=== PATIENT | male | born 1955 | race Caucasian/White ===

== ENCOUNTER 2018-03-05 06:25 | Day surgery (SDC) | payer BC ==
[2018-03-04 12:29] LABS: ALT/SGPT 20 U/L (12-78); AST/SGOT 19 U/L (15-37); Albumin 3.6 g/dL (3.4-5.0); Alkaline Phosphatase 102 U/L (45-117); Amylase Level 44 U/L (25-115); Bilirubin Direct < 0.1 mg/dL (0-0.2); Bilirubin Total 0.3 mg/dL (0.2-1.0); Protein, Total 6.9 g/dL (6.4-8.2)
[2018-03-05] MEDS ORDERED: Ringers Lactate 1,000 ML IV ONE (07:11)
[2018-03-05] MEDS ORDERED: CEFOXITIN/SWI 1gm 1 GM/10 ML SYR ONE (07:22)
[2018-03-05] MEDS ORDERED: BUPIVACAINE 0.5% PF 10 ML VIAL ONE (07:32)
[2018-03-05] MEDS ORDERED: FENTANYL CITR 100 MCG/2 ML ONE ×2 (07:33→08:50)
[2018-03-05] MEDS ORDERED: MIDAZOLAM HCL 2 MG/2 ML INJ ONE (07:34)
[2018-03-05] MEDS ORDERED: PROPOFOL 200 MG/20 ML VIAL IV ONE (07:34)
[2018-03-05] MEDS ORDERED: ONDANSETRON 4 MG/2 ML VIAL ONE (07:35)
[2018-03-05] MEDS ORDERED: ROCURONIUM 50 MG/5 ML VIAL IV ONE (07:35)
[2018-03-05] MEDS ORDERED: LIDOCAINE 2% MPF 5 ML VIAL ONE (07:35)
[2018-03-05] MEDS: HYDROMORPHONE HCL 2 MG/ML inj ONE ×2 (09:13→09:18)
[2018-03-05] MEDS: MORPHINE 4 MG/ML SYR ONE ×2 (09:24→09:29)
[2018-03-05] MEDS ORDERED: HYDROCODONE/APAP 7.5/325 MG TAB ONE (10:49)
--- NOTE | 2018-03-05 19:35 | OP ---
Date of Procedure: 03/05/2018 Surgeon: River Hernandez MD Preopertive Diagnosis: Symptomatic cholelithiasis. Postopertive Diagnoses: Symptomatic cholelithiasis with extensive adhesions. Procedure Performed: Laparoscopic cholecystectomy and lysis of adhesions. Estimated Blood Loss: Minimal. Specimen: Gallbladder. Findings: As above. Anesthesia: General. Complications: None. Disposition: The patient tolerated the procedure in stable condition and taken to Recovery in good g eneral condition. Procedure In Detail: The patient was brought to the OR and placed in supine position. General anest hesia was begun. The patient was prepped and draped in the usual sterile fashion. Marcaine 0.5% was infiltrated locally. A 15-blade was used to make an infraumbilical 1 cm incision. Subcutaneous tis sues were divided. Fascia and plane divided. A #1 Vicryl stay suture was placed. Peritoneal cavity attempted to enter but there was a lot of scar tissue. So, this site was aborted, and then epigastr ic oblique incision was made just to the right of midline 1 cm in length. Subcutaneous tissue divide d. The fascia and plane divided. A #1 Vicryl stay suture was placed. Peritoneal cavity was entered with sharp and blunt dissection and then 12 mm trocar was placed into the peritoneal cavity under di rect vision. Pneumoperitoneum was established and then revealed extensive adhesions in the right upp er quadrant at the infraumbilical attempted side. There was no bowel involving the adhesions. This was carefully dissected and then a 10 mm trocar was placed through that and then two 5 mm trocars wer e placed in the right subcostal region under direct vision and there was extensive adhesions to the g allbladder and the liver which were lysed with the LigaSure, until the gallbladder was clearly define d. This took approximately 15 minutes of dissection and subsequently fundus identified, retracted rashid periorly. Infundibulum identified, retracted inferolaterally. Cystic duct and cystic artery were cl early identified with blunt dissection. Clips placed. Both structures were divided. Cautery was us ed to remove the gallbladder from the liver bed. Bleeding on the liver bed was controlled with caute ry and then gallbladder retrieved through the epigastric incision under direct vision. Pneumoperiton eum reestablished. Right upper quadrant was irrigated. Effluent was clear. Minimal oozing noted. Surgicel placed in the liver bed, controlled it well and no evidence of bile leakage appreciated. Rashid bsequently, all trocars were removed under direct vision. Stay sutures were tied to each other to ap proximate the fascial defect. Subcutaneous wounds were irrigated. Bleeding controlled with cautery. A 3-0 chromic was used to approximate subcutaneous tissue, hailey used to close the skin. Sterile dressing was applied. The patient was awakened and taken to Recovery in good general condition. Discharge Note: The patient will go to day surgery and home when stable. Disposition: Home. Condition: Stable. Discharge Instructions: Resume home medications and diet. Activity as tolerated. No heavy lifting. Remove outer dressing in 2 days. Shower. Keep wound clean and dry. Follow up in my office in 10 days. Call for appointment. Tylenol No. 2 one tablet p.o. q.4 p.r.n. pain. /MODL Voice ID: [id number] Report ID: [id number]
== END 2018-03-05 11:42 | disposition home or self-care (01) ==
LOC: OR 06:25
PROVIDERS: ATTEND Surgery
PROC: 0DNW4ZZ Release Peritoneum, Percutaneous Endoscopic Approach (ICD-10-PCS; 2018-03-05)
PROC: 0FT44ZZ Resection of Gallbladder, Percutaneous Endoscopic Approach (ICD-10-PCS; principal; 2018-03-05 07:30)
DX: K80.10 Calculus of gallbladder with chronic cholecystitis without obstruction (principal); K66.0 Peritoneal adhesions (postprocedural) (postinfection); E07.9 Disorder of thyroid, unspecified; Z88.0 Allergy status to penicillin
CPT/HCPCS: 36415; 80076; 82150; 88304; J1170; J2250; J2405; J2704; J3010